=== PATIENT | female | born 1960 | race Caucasian/White ===

== ENCOUNTER → 2024-02-15 06:27 | Day surgery (SDC) | payer OTHER, SELFPAY | LOC: GI 06:27 | PROVIDERS: ATTENDING PHYSICIAN Internal Medicine Gastroenterology | DX: D12.2 Benign neoplasm of ascending colon (principal); K57.30 Diverticulosis of large intestine without perforation or abscess without bleeding; K64.8 Other hemorrhoids; Z86.010 Personal history of colon polyps | CPT/HCPCS: 45380; 88305 ==

== ENCOUNTER → 2024-10-28 07:50 | Outpatient (REF) | payer OTHER, SELFPAY | LOC: WDC 07:50 | PROVIDERS: ATTENDING PHYSICIAN Obstetrics & Gynecology Gynecology | DX: Z12.31 Encounter for screening mammogram for malignant neoplasm of breast (principal) | CPT/HCPCS: 77063; 77067 ==